=== PATIENT | female | born 1965 | race Caucasian/White ===

== ENCOUNTER 2025-10-27 07:33 | Emergency (ER) | payer OTHER ==
[~2025-10-27] VITALS: Ht 165.1 cm; Wt 51.2 kg
[2025-10-27] MEDS ORDERED: LEVO25TA7 PO (08:00)
[2025-10-27] MEDS ORDERED: LOSA25TA41 PO (08:00)
--- NOTE | 2025-10-27 08:02 | RADIOLOGY REPORT ---
CLINICAL INDICATION: RIGHT Shoulder Pain TECHNIQUE: DI SHOULDER, COMPLETE (MIN 2 VWS) COMPARISON: None FINDINGS/IMPRESSION: : Mildly displaced fracture of the humeral greater tuberosity. [id number] degenerative changes of the glenohumeral and acromioclavicular joints. Soft tissues are unremarkable.
--- NOTE | 2025-10-27 09:26 | Physician Documentation ---
History of Present Illness ~ Chief Complaint: Shoulder pain Stated Complaint: RIGHT SHOULDER PAIN Time Seen by MD: 08:33 Primary Medical Doctor: OLU KRUGER [facility] This is a 60-year-old female no significant past history coming in after a fall off the deck at her house while moving some items around. Patient fell to the left knee and then to right arm where she immediately felt pain. She denies any motor or sensory deficits at this time but states she is having pain in the right upper arm near the shoulder. Patient is a half marathon runner stays fit riding bikes and running. She is not on blood thinners and is alert and o riented x3 GCS of 15 she did not hit head or lose consciousness. No prodromal affects no chest pain or shortness of breath nausea vomiting fever chills. Able to move all fingers and arm however pain worse with movement. No other symptoms at this time. Tetanus within 5 years?: No Medication Reconciliation Allergies: Coded Allergies: No Known Allergies (Unverified , 10/27/25) Scheduled Levothyroxine Sodium (Levothyroxine Sodium), 1 TAB PO DAILY, (Reported) Losartan Potassium (Losartan Potassium), 1 TAB PO DAILY, (Reported) Scheduled PRN Tramadol HCl (Tramadol HCl), 1 TAB PO Q6H PRN PRN for pain Physical Exam Vital Signs: Temperature: 98.0, Source: Temporal, Heart Rate: 62, Respiratory Rate: 14, BP: 142/74, Pulse Oximetry: 100, Weight: 51.200 Oxygen Flow Rate: 0 General Appearance: alert, no apparent distress EENT: PERRL/EOMI, moist mucous membranes Neck: normal inspection Respiratory: lungs clear, normal breath sounds Chest: normal inspection, non-tender Cardiovascular: normal peripheral pulses, regular rate, rhythm Gastrointestinal: normal palpation, non-tender Back: normal inspection, no vertebral tenderness Shoulder: bone tenderness, other (Pain in the proximal humerus on palpation no signs of dislocation) Skin: normal color, warm/dry Lymphatic: normal inspection Neurologic: oriented x4, director of aviation II-XII nml as tested Psychiatric: normal mood/affect Progress Results/Orders Results/Orders Orders - SANTO ROMERO MD Shoulder, Complete (Min 2 Vws) (10/27/25 07:41) Completed Orders - SANTO ROMERO MD Shoulder, Complete (Min 2 Vws) (10/27/25 07:41) Vital Signs 10/27/25 10/27/25 10/27/25 07:34 09:02 09:37 Temp 98.0 98.6 Pulse 69 62 55 Resp 16 14 16 B/P (MAP) 146/85 142/74 (96) 134/52 Pulse Ox 100 100 98 O2 Flow Rate 0 0 Medical Decision Making Additional information obtaine: old records, family Findings MDM: Limited: (2 points from category 1 or one discussion with independent historian). Moderate: one of the following (3 points from category 1, or independent interpretations of tests performed by another physician/QHP: (ct,ecg,rad dasiy,rhythm strip,or comparing xray to prior), or discussion of tests or management with other professionals (not including [facility] ER doc/PA or family members.) High: (2 of 3 from : category 1 (3 points), independent interpretation of tests performed by another physician/QHP, and discussion of tests or management). Prior ER notes reviewed: Category 1: Number of Tests ordered or reviewed: [1] Number of Independent Historians: [1] Non [facility] ER notes reviewed: 1. Reviewed nursing notes 2. 3. Category 2: I independently interpreted the: [Proximal nondisplaced fracture of humerus] Category 3: Discussion with other professionals: [Discussed with orthopedics plan of action. Ortho bedside and requests immobilizer which was placed on patient before discharge and we all discussed proper follow-up together which patient understands at this time.] [employer]S [employer] Problems related to: ( )Challenges with access to Primary Care or Outpatient Speciality Care ( )Psychosocial circumstances such as mental health issues ( )Social environment: such as violence or substance abuse ( )Housing and economic circumstances: such as homelessness ( )Employment and unemployment: such as recently loss of employment ( )Occupational exposures or injuries: ( )Accessing ED outside of normal PCP hours ( )Language barrier: ( )Primary support group, including family circumstances: Prescription Management: New Prescriptions: [[Tramadol 50 mg q.6 for seven days for a total of 28 tablets per ortho]] I have reviewed the patient's medications and I do not recommend any changes at this time. (Applies only if checked) Comorbid conditions include but are not limited to: [] Testing or interventions considered: CTA of the right upper extremity considered however patient had strong pulses and unnecessary at this time. Full range of motion and no motor or sensory defects no concern for compartment syndrome. Compartments are normal at this time Yin will not be necessary to measure pressures. CT head considered however patient did not hit head and is not on blood thinners with no LOC. X-ray of the right ankle considered however [place] criteria negative confirmed by both ortho and myself. Differential includes but is not limited to: [Fracture, shoulder dislocation, compartment syndrome, vasovagal syncope, trauma] Differential Dx:Considerations: Include: Dislocation, Fracture: Humerus, Fracture: Clavicle Departure Disposition: HOME / SELF CARE / HOMELESS Impression: Primary Impression: Fracture of humerus Condition: Stable Discharge Instructions: How to Use a Shoulder Immobilizer, Shoulder Pain, Shoulder Fracture Additional Instructions: Follow-up with orthopedics, use shoulder immobilizer. Referrals: NO PRIMARY CARE PROVIDER (PCP) Prescriptions Tramadol HCl (Tramadol HCl) 50 Mg Tablet 1 TAB PO Q6H PRN PRN for pain for 7 Days, #28 TAB Prov: SANTO ROMERO MD 10/27/25 Education Educated: Patient Educated regarding: diagnosis, treatment, prognosis, need for follow up Signature Scribe Signature: No scribe Attestation: . SANTO ROMERO MD Oct 27, 2025 09:26
[2025-10-27] MEDS ORDERED: TRAM50TA2 PO (09:34)
[2025-10-27 09:37] VITALS: BP 134/52; PULSE 55; RESP 16; TEMP 98.6; O2SAT 98
== END 2025-10-27 09:42 | disposition home or self-care (01) ==
LOC: ER 07:34
DX: S42.201A Unspecified fracture of upper end of right humerus, initial encounter for closed fracture (principal); Z79.899 Other long term (current) drug therapy; W18.39XA Other fall on same level, initial encounter; Y93.89 Activity, other specified; Y92.89 Other specified places as the place of occurrence of the external cause; Y99.8 Other external cause status
CPT/HCPCS: 29105; 73030; 99283